=== PATIENT | male | born 1985 | race African-American/Black ===

== ENCOUNTER 2017-04-04 06:31 | Emergency (ER) | payer SELFPAY ==
[~2017-04-04 06:31] MED LIST: Z.0.NO CURRENT MEDS
[2017-04-04 06:35] VITALS: BP 132/70; PULSE 83; RESP 16; TEMP 97.7; O2SAT 98
[2017-04-04] MEDS ORDERED: ZOFR4TAB3 SL (07:09)
--- NOTE | 2017-04-04 07:09 | PD ---
HPI Chief Complaint: GI Complaint Time Seen by Provider: 06:54 Travel History International Travel<30 days: No Contact w/Intl Traveler<30days: No Traveled to known affect area: No History of Present Illness HPI 32-year-old male complaining of nausea vomiting. Patient states that the symptoms started this morning. Patient states that he drank some alcohol last night. Patient states that he has history of vomiting with alcohol in the past. Patient states that he has a cold recently. Patient denies any headache. Patient denies any chest pain or shortness of breath. Patient states that he has mild abdominal cramping this morning. Patient denies any dysuria or frequency. She denies any diarrhea. Patient Denies any back pain. Patient denies any history of marijuana use recently. [facility] Social History Alcohol Use: No Tobacco Use: No Substance Use: Yes (occ marijuana) Allergies-Medications (Allergen,Severity, Reaction): Uncoded Allergies: NKDA (Allergy, 03/11/11) Reported Meds & Prescriptions Reported Meds & Active Scripts Active No Active Prescriptions or Reported Medications Review of Systems General / Constitutional: No: Fever Eyes: No: Visual changes HENT: No: Headaches Cardiovascular: No: Chest Pain or Discomfort Respiratory: No: Shortness of Breath Gastrointestinal: Positive: Nausea, Vomiting, Abdominal Pain Genitourinary: No: Dysuria Musculoskeletal: No: Pain Skin: No Rash Neurologic: No: Weakness Psychiatric: No: Depression Endocrine: No: Polydipsia Hematologic/Lymphatic: No: Easy Bruising Physical Exam Narrative GENERAL: Well-nourished, well-developed patient. SKIN: Focused skin assessment warm/dry. HEAD: Normocephalic. EYES: No scleral icterus. No injection or drainage. NECK: Supple, trachea midline. No JVD or lymphadenopathy. CARDIOVASCULAR: Regular rate and rhythm without murmurs, gallops, or rubs. RESPIRATORY: Breath sounds equal bilaterally. No accessory muscle use. GASTROINTESTINAL: Abdomen soft, non-tender, nondistended. MUSCULOSKELETAL: No cyanosis, or edema. BACK: Nontender without obvious deformity. No CVA tenderness. Neurologic exam normal. Data Data Last Documented VS Vital Signs Date Time Temp Pulse Resp B/P (MAP) Pulse Ox O2 Delivery O2 Flow Rate FiO2 04/04/17 06:35 97.7 83 16 132/70 (90) 98 Orders Orders Ondansetron Odt (Zofran Odt) (04/04/17 07:15) MDM Medical Decision Making Medical Screen Exam Complete: Yes Emergency Medical Condition: Yes Differential Diagnosis Differential diagnoses including gastroenteritis, gastritis, PUD, pancreatitis, cystitis, dehydration, electrolyte imbalance. Narrative Course 32-year-old male with nausea vomiting this morning. Physical exam benign. Vital signs stable. Zofran 4 g ODT. Diagnosis Primary Impression: Gastroenteritis Patient Instructions: General Instructions Additional Instructions: Zofran as needed. Clear fluid this morning and advance diet as tolerated. Follow-up with personal physician. Return if persistent problem or worse. Med/Other Pt SpecificInfo: Prescription(s) given Scripts Ondansetron Odt (Zofran Odt) 4 Mg Tab 4 MG SL Q6HR Y for Nausea/Vomiting, #10 TAB 0 Refills Prov: Joe Whitaker MD 04/04/17 Disposition: 01 DISCHARGE HOME Condition: Stable Joe Whitaker MD Apr 04, 2017 07:09
[2017-04-04] MEDS ORDERED: ONDANSETRON ODT 4 MG TAB PO ONE (07:15)
== END 2017-04-04 07:44 | disposition home or self-care (01) ==
LOC: NEPE 06:31
DX: K52.9 Noninfective gastroenteritis and colitis, unspecified (principal)
CPT/HCPCS: 99283

== ENCOUNTER 2017-04-08 00:41 | Emergency (ER) | payer SELFPAY ==
[~2017-04-08] VITALS: Ht 170.2 cm; Wt 65.0 kg
[~2017-04-08 00:41] MED LIST changes: -Z.0.NO CURRENT MEDS; +ZOFR4TAB3 SL
[2017-04-08 00:55] VITALS: BP 140/70; PULSE 75; RESP 18; TEMP 97.6; O2SAT 100
[2017-04-08 00:58] VITALS: BP 140/70; PULSE 75; RESP 18; TEMP 97.6; O2SAT 100
[2017-04-08 01:50] VITALS: RESP 20
[2017-04-08] MEDS ORDERED: SODIUM CHLORIDE 0.9% FLUSH 10 ML FLUSH IVF PRN (02:00)
--- NOTE | 2017-04-08 02:30 | RADRPT ---
EXAM DATE/TIME: 04/08/2017 02:03 [facility] COMPARISON: No previous studies available for comparison. INDICATIONS : Chest pain for one day. MEDICAL HISTORY : None. SURGICAL HISTORY : None. ENCOUNTER: Initial ACUITY: 1 day PAIN SCORE: 5/10 LOCATION: Bilateral chest FINDINGS: A single view of the chest demonstrates the lungs to be symmetrically aerated without evidence of mas s, infiltrate or effusion. The cardiomediastinal contours are unremarkable. Osseous structures are intact. CONCLUSION: 1. No acute cardiopulmonary disease. Bryon Yao MD on April 08, 2017 at 2:28 Board Certified Radiologist. This report was verified electronically.
[2017-04-08 02:56] LABS: AUTOMATED NEUTROPHIL # 4.8 TH/MM3 (1.8-7.7); BASOPHIL # 0.1 TH/MM3 (0-0.2); BASOPHIL % 0.8 % (0.0-2.0); EOSINOPHIL # 0.2 TH/MM3 (0-0.4); EOSINOPHIL % 2.3 % (0.0-4.0); HEMATOCRIT 41.3 % (39.0-51.0); HEMOGLOBIN 14.8 GM/DL (13.0-17.0); LYMPH % 30.8 % (9.0-44.0); LYMPHOCYTE # 2.6 TH/MM3 (1.0-4.8); MEAN CELL VOLUME 83.7 FL (80.0-100.0); MEAN CORPUSCULAR HGB CONC 35.8 % (32.0-36.0); MEAN PLATELET VOLUME 9.4 FL (7.0-11.0); MONO % 7.9 % (0.0-8.0); MONOCYTE # 0.7 TH/MM3 (0-0.9); NEUT % 58.2 % (16.0-70.0); PLATELET COUNT 275 TH/MM3 (150-450); RED BLOOD COUNT 4.94 MIL/MM3 (4.50-5.90); RED CELL DISTRIBUTION WIDTH 12.8 % (11.6-17.2); WHITE BLOOD COUNT 8.3 TH/MM3 (4.0-11.0)
[2017-04-08 03:09] LABS: ALBUMIN 4.4 GM/DL (3.4-5.0); ALT (GPT) 25 U/L (12-78); AST (GOT) 25 U/L (15-37); BICARBONATE 25.4 MEQ/L (21.0-32.0); BLOOD UREA NITROGEN 18 MG/DL (7-18); CALCIUM 8.8 MG/DL (8.5-10.1); CHLORIDE 109 MEQ/L (98-107); CREATININE 1.44 MG/DL (0.60-1.30); GLOMERULAR FILTRATION RATE 70 ML/MIN (>89); GLUCOSE,RANDOM 112 MG/DL (74-106); SODIUM (NA) 142 MEQ/L (136-145)
[2017-04-08 03:18] LABS: ALKALINE PHOSPHATASE 76 U/L (45-117); TOTAL PROTEIN 8.6 GM/DL (6.4-8.2); TROPONIN I LESS THAN 0.02 NG/ML (0.02-0.05)
[2017-04-08] MEDS ORDERED: SODIUM CHLOR 0.9% 1000 ML INJ 1,000 ML IV ONE (04:00)
--- NOTE | 2017-04-08 05:03 | PD ---
HPI . Cardiac complaint Chief Complaint: Cardiac Complaint Time Seen by Provider: 00:57 Travel History International Travel<30 days: No Contact w/Intl Traveler<30days: No Traveled to known affect area: No History of Present Illness HPI 32-year-old male awakened with palpitations and panic feeling tonight. Patient has had this similar incidents prior. Patient called EMS who transported to the hospital. Patient now states most of his symptoms have abated. Patient's vital signs en route were pulse rate of 75, oxygen saturations are percent, blood pressure normal. Patient denies any recent weight change weight loss, heat or cold intolerance. Denies significant social stressors or anxiety tonight, although patient has had anxiety disorder in the past. Patient denies any leg pain or swelling, has had no recent sedentary period or confounding travel [facility] Past Medical History Narrative Medical Denies any significant past medical history Medical History: Denies Significant Hx Immunizations Current: Yes Tetanus Vaccination: Unknown Influenza Vaccination: No Past Surgical History Surgical History: No Previous Surgery Social History Alcohol Use: No Tobacco Use: No Substance Use: Yes (occ marijuana) Allergies-Medications (Allergen,Severity, Reaction): Uncoded Allergies: NKDA (Allergy, 03/11/11) Reported Meds & Prescriptions Reported Meds & Active Scripts Active No Active Prescriptions or Reported Medications Narrative Medication Allergies medications reviewed Review of Systems Except as stated in HPI: all other systems reviewed are Neg General / Constitutional: No: Fever Eyes: No: Visual changes HENT: No: Headaches Cardiovascular: Positive: Palpitations, Tachycardia, No: Chest Pain or Discomfort, Irregular Rhythm, Diaphoresis, Syncope, Dyspnea on exertion, Varicosities, Edema, Cyanosis, Varicosities, Phlebitis, Claudication Respiratory: No: Shortness of Breath Gastrointestinal: No: Abdominal Pain Genitourinary: No: Dysuria Musculoskeletal: No: Pain Skin: No Rash Neurologic: No: Weakness Psychiatric: No: Depression Endocrine: No: Polydipsia Hematologic/Lymphatic: No: Easy Bruising Physical Exam Narrative GENERAL: Awake and alert oriented 3 no acute distress or signs afebrile normal and stable SKIN: Warm and dry. Color normal no diaphoresis cyanosis or pallor HEAD: Atraumatic. Normocephalic. EYES: Pupils equal and round. No scleral icterus. No injection or drainage. ENT: No nasal bleeding or discharge. Mucous membranes pink and moist. NECK: Trachea midline. No JVD. Supple full range of motion CARDIOVASCULAR: Regular rate and rhythm. S1-S2 no murmurs or gallops RESPIRATORY: No accessory muscle use. Clear to auscultation. Breath sounds equal bilaterally. GASTROINTESTINAL: Abdomen soft, non-tender, nondistended. Hepatic and splenic margins not palpable. MUSCULOSKELETAL: Extremities without clubbing, cyanosis, or edema. No obvious deformities. NEUROLOGICAL: Awake and alert. No obvious cranial nerve deficits. Motor grossly within normal limits. Five out of 5 muscle strength in the arms and legs. Normal speech. PSYCHIATRIC: Appropriate mood and affect; insight and judgment normal. Data Data Last Documented VS Vital Signs Date Time Temp Pulse Resp B/P (MAP) Pulse Ox O2 Delivery O2 Flow Rate FiO2 04/08/17 01:50 20 04/08/17 00:58 97.6 75 100 Room Air Orders Orders Electrocardiogram (04/08/17 ) [employer] / Telemetry [id number] (04/08/17 01:13) Ckmb (Isoenzyme) Profile (04/08/17 01:49) Complete Blood Count With Diff (04/08/17 01:49) Comprehensive Metabolic Panel (04/08/17 01:49) D-Dimer (04/08/17 01:49) Troponin I (04/08/17 01:49) Chest, Single Ap (04/08/17 01:49) Ecg Monitoring (04/08/17 01:49) Iv Access Insert/Monitor (04/08/17 01:49) Oximetry (04/08/17 01:49) Sodium Chloride 0.9% Flush (Ns Flush) (04/08/17 02:00) Thyroid Stimulating Hormone (04/08/17 01:49) CKMB (04/08/17 02:46) CKMB% (04/08/17 02:46) Sodium Chlor 0.9% 1000 Ml Inj (Ns 1000 M (04/08/17 04:00) Labs Laboratory Tests Test 04/08/17 02:46 White Blood Count 8.3 TH/MM3 Red Blood Count 4.94 MIL/MM3 Hemoglobin 14.8 GM/DL Hematocrit 41.3 % Mean Corpuscular Volume 83.7 FL Mean Corpuscular Hemoglobin 30.0 PG Mean Corpuscular Hemoglobin Concent 35.8 % Red Cell Distribution Width 12.8 % Platelet Count 275 TH/MM3 Mean Platelet Volume 9.4 FL Neutrophils (%) (Auto) 58.2 % Lymphocytes (%) (Auto) 30.8 % Monocytes (%) (Auto) 7.9 % Eosinophils (%) (Auto) 2.3 % Basophils (%) (Auto) 0.8 % Neutrophils # (Auto) 4.8 TH/MM3 Lymphocytes # (Auto) 2.6 TH/MM3 Monocytes # (Auto) 0.7 TH/MM3 Eosinophils # (Auto) 0.2 TH/MM3 Basophils # (Auto) 0.1 TH/MM3 CBC Comment DIFF FINAL Differential Comment D-Dimer Quantitative (PE/DVT) LESS THAN 0.19 MG/L FEU Blood Urea Nitrogen 18 MG/DL Creatinine 1.44 MG/DL Random Glucose 112 MG/DL Total Protein 8.6 GM/DL Albumin 4.4 GM/DL Calcium Level 8.8 MG/DL Alkaline Phosphatase 76 U/L Aspartate Amino Transf (AST/SGOT) 25 U/L Alanine Aminotransferase (ALT/SGPT) 25 U/L Total Bilirubin 1.0 MG/DL Sodium Level 142 MEQ/L Potassium Level 3.4 MEQ/L Chloride Level 109 MEQ/L Carbon Dioxide Level 25.4 MEQ/L Anion Gap 8 MEQ/L Estimat Glomerular Filtration Rate 70 ML/MIN Total Creatine Kinase 229 U/L Creatine Kinase MB 0.7 NG/ML Troponin I LESS THAN 0.02 NG/ML Thyroid Stimulating Hormone 3rd Gen 2.980 uIU/ML [facility] Medical Decision Making Medical Screen Exam Complete: Yes Emergency Medical Condition: Yes Medical Record Reviewed: Yes Differential Diagnosis Palpitations, anxiety, sleep start, nightmare Narrative Course EKG normal sinus rhythm at 65 bpm, patient has J-point elevation versus ST elevation in V2 through V4. Laboratory examinations reviewed, cardiac enzymes normal. Patient does have an elevated creatinine 1.44. Patient has a history of chronic poor fluid intake. Patient given IV normal saline bolus as well as free water to drink. Recommended patient follow-up outpatient clinic retest kidney function early next week. Diagnosis Primary Impression: Palpitations Patient Instructions: Acute Kidney Injury (GEN), General Instructions, Heart Palpitations (ED) Additional Instructions: Drink plenty of fluids. Follow-up with medical clinic next week for repeat laboratory examinations. Return for worsening Scripts No Active Prescriptions or Reported Meds Disposition: DISCHARGE HOME Condition: Stable Dayday Mittal MD Apr 08, 2017 05:03
--- NOTE | 2017-04-08 20:58 | EKG ---
Date Performed: 04/08/2017 Time Performed: 01:46:42 PTAGE: 32 years EKG: Sinus rhythm POSSIBLE LEFT ATRIAL ENLARGEMENT POSSIBLE RIGHT VENTRICULAR CONDUCTION DELAY NONSPECIFIC ST ELEVATIO N BORDERLINE ECG PREVIOUS TRACING : 03/11/2011 13.29 SINCE PRIOR TRACING NO SIGNIFICANT CHANGE NOTED DOCTOR: Sunita Null Interpretating Date/Time 04/08/2017 20:57:36
== END 2017-04-08 07:06 | disposition home or self-care (01) ==
LOC: NEPC 00:41
DX: R00.2 Palpitations (principal); F41.9 Anxiety disorder, unspecified
CPT/HCPCS: 71045; 80053; 82550; 82552; 84443; 84484; 85025; 85379; 93005; 99285; J7030